=== PATIENT | female | born 1970 | race Caucasian/White ===

== ENCOUNTER 2019-01-09 06:02 | Day surgery (SDC) | payer OTHER ==
[2019-01-09] MEDS ORDERED: ANESTHESIA TRAY IN PYXIS 1 EA TRAY MC ONE (07:06)
[2019-01-09] MEDS ORDERED: MIDAZOLAM HCL 2 MG/2ML VIAL ONE (07:07)
[2019-01-09] MEDS ORDERED: BUPIVACAINE 0.5 % PF 150 MG/30 ML VIAL ONE (07:47)
[2019-01-09] MEDS ORDERED: LIDOCAINE HCL/PF 1% 30 ML SDV ONE (07:47)
[2019-01-09] MEDS ORDERED: BETA ACET/BET NA PHOS MDV 6 MG/ML VIAL ONE (07:47)
== END 2019-01-09 09:15 | disposition home or self-care (01) ==
LOC: DS 06:02
PROVIDERS: ATTEND Student in an Organized Health Care Education/Training Program
DX: M76.32 Iliotibial band syndrome, left leg (principal); M25.852 Other specified joint disorders, left hip
CPT/HCPCS: 20550; 36415; 73501; 84702; A6402; J0702; J2250; J2704; J3490 ×3; 73020